=== PATIENT | male | born 1975 | race American Indian/Alaskan Native ===

== ENCOUNTER 2023-08-10 16:55 | Emergency (ER) | payer MEDICAID ==
[~2023-08-10] VITALS: Ht 172.7 cm; Wt 80.0 kg
[2023-08-10 17:06] VITALS: O2SAT 97
[2023-08-10] MEDS ORDERED: ACETAMINOPHEN 325MG TABLET PO ONE (17:15)
[2023-08-10] MEDS ORDERED: METHOCARBAMOL 500MG TABLET PO ONE (17:30)
[2023-08-10] MEDS ORDERED: IBUP-2029 MT (18:07)
[2023-08-10] MEDS ORDERED: METH-653 MT (18:07)
[2023-08-10] MEDS ORDERED: ONDANSETRON HCL 4MG TABLET PO ONE (18:45)
[2023-08-10] MEDS ORDERED: HYDROCODONE/ACETAMINOPHEN 5/325MG TABLET PO ONE (18:45)
[2023-08-10 18:49] VITALS: BP 178/98; PULSE 98; RESP 18; TEMP 98.7
== END 2023-08-10 19:06 | disposition home or self-care (01) ==
LOC: ER 16:55
DX: S00.03XA Contusion of scalp, initial encounter (principal); S00.512A Abrasion of oral cavity, initial encounter; I10 Essential (primary) hypertension; Z88.6 Allergy status to analgesic agent; Z88.8 Allergy status to other drugs, medicaments and biological substances; Y08.89XA Assault by other specified means, initial encounter; Y93.89 Activity, other specified; Y92.89 Other specified places as the place of occurrence of the external cause; Y99.8 Other external cause status
CPT/HCPCS: 99284; 70450; 72125; Q0162

== ENCOUNTER 2025-06-08 00:38 | Emergency (ER) | payer MEDICAID, OTHER ==
[~2025-06-08] VITALS: Ht 170.2 cm; Wt 77.0 kg
[~2025-06-08 00:38] MED LIST: IBUP-1455 MT; METH-653 MT
[2025-06-08 00:42] VITALS: BP 189/99; TEMP 36.8; O2SAT 99
[2025-06-08 00:44] VITALS: PULSE 91; RESP 18; O2SAT 98
[2025-06-08 01:13] LABS: BASOPHILS % 0.6 % (0.0-2.0); EOSINOPHILS % 1.2 % (0.0-5.0); HEMATOCRIT. 39.5 % (42.0-52.0); HEMOGLOBIN. 13.7 g/dL (14.0-18.0); LYMPHOCYTES % 29.2 % (20.0-50.0); MEAN PLATELET VOLUME 8.1 fl (7.4-10.4); MONOCYTES % 8.9 % (2.0-8.0); NEUTROPHILS % 60.1 % (40.0-76.0); PLATELET 272 x1000/uL (130-400); RED BLOOD CELL COUNT 4.47 mill/uL (4.7-6.1); RED CELL DISTRIBUTION WIDTH 13.2 % (11.6-14.6)
[2025-06-08 01:26] LABS: CREATININE 0.7 mg/dL (0.6-1.3)
[2025-06-08 01:27] LABS: TROPONIN I HIGH SENSITIVITY < 4 ng/L (3.0-53); UREA NITROGEN BLOOD 11 mg/dL (9-23)
[2025-06-08 01:29] LABS: PHOSPHORUS 3.0 mg/dL (2.5-4.9)
[2025-06-08] MEDS: MECLIZINE 25MG TABLET PO ONE (01:56)
== END 2025-06-08 02:57 | disposition left against medical advice (07) ==
LOC: ER 00:38
DX: R42 Dizziness and giddiness (principal); I10 Essential (primary) hypertension; Z88.5 Allergy status to narcotic agent
CPT/HCPCS: 80048; 80320; 83735; 84100; 85025; 84484; 36415; 71045; 70450; 93005; 99285; J8597; G0480